=== PATIENT | male | born 1990 | race African-American/Black ===

== ENCOUNTER 2020-01-12 01:08 | Emergency (ER) | payer MEDICAID ==
[~2020-01-12] VITALS: Ht 180.3 cm; Wt 95.3 kg
--- NOTE | 2020-01-12 01:20 | NUR ---
ED Nurse Note: WHEELCHAIR ASSIST TO ED C/O SUBSTANCE ABUSE. PT REPORTS TAKING 1 PILL OF ECSTACY X 2100 AND ETOH. PATIENT AO3 WITH SLURRED SPEECH. NAD VSS. CHANGED INTO GOWN; ATTACHED TO MONITOR; SAFETY MEASURES MET.
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
[2020-01-12 01:30] VITALS: BP 153/70
[2020-01-12] MEDS ORDERED: LORazepam Inj 2mg/ml 1ml IV ONE (01:30)
--- NOTE | 2020-01-12 01:30 | NUR ---
ED Nurse Note: IV ACCESS ESTABLISHED. BLOOD AND URINE COLLECTED; SENT DOWN TO LAB.
[2020-01-12 01:45] LABS: APPEARANCE,URINE CLEAR; BILIRUBIN, URINE NEGATIVE (NEGATIVE); COLOR,URINE PALE YELLOW; EOSINOPHILS % (AUTO) 4.1 % (0.0-3.0); GLUCOSE, URINE (UA) NEGATIVE (NEGATIVE); HEMATOCRIT 45.1 % (42.0-52.0); HEMOGLOBIN 15.7 G/DL (14.2-18.0); KETONES,URINE NEGATIVE (NEGATIVE); LEUKOCYTE ESTERASE ,URINE NEGATIVE (NEGATIVE); LYMPHOCYTES % (AUTO) 45.3 % (20.0-45.0); MEAN CORPUSCULAR VOLUME 87 FL (80-99); MONOCYTES % (AUTO) 6.2 % (1.0-10.0); NEUTROPHILS % (AUTO) 42.4 % (45.0-75.0); NITRITE,URINE NEGATIVE (NEGATIVE); PH,URINE 5 (4.5-8.0); PLATELET COUNT 239 K/UL (150-450); PROTEIN,URINE NEGATIVE (NEGATIVE); RED BLOOD COUNT 5.17 M/UL (4.70-6.10); RED CELL DISTRIBUTION WIDTH 11.5 % (11.6-14.8); UROBILINOGEN,URINE NORMAL MG/DL (0.0-1.0); WHITE BLOOD COUNT 11.9 K/UL (4.8-10.8)
[2020-01-12 02:00] LABS: ANION GAP 11 mmol/L (5-15); BLOOD UREA NITROGEN 17 mg/dL (7-18); CALCIUM 9.1 MG/DL (8.5-10.1); CARBON DIOXIDE 26 MMOL/L (21-32); CHLORIDE 102 MMOL/L (98-107); POTASSIUM 2.9 MMOL/L (3.5-5.1); SODIUM 139 MMOL/L (136-145)
[2020-01-12 03:00] VITALS: BP 123/72
--- NOTE | 2020-01-12 03:00 | NUR ---
ED Nurse Note: PATIENT SLEEPING IN BED WITH NO ACUTE DISTRESS. AROUSABLE TO NAME. VSS. RESPIRATIONS EVEN AND UNLABORED.
[2020-01-12 04:30] VITALS: BP 133/72
--- NOTE | 2020-01-12 04:30 | NUR ---
ED Nurse Note: PATIENT AO4. NAD. VSS. PATIENT STATES "I FEEL BETTER. I WANT TO GO HOME NOW" NOTIFIED ERMD. PATIENT ABLE TO AMBULATE WITH STEADY GAIT. PT CALLED GF TO PICK HIM UP.
[2020-01-12 05:10] VITALS: BP 158/75
--- NOTE | 2020-01-12 05:10 | NUR ---
ER DISCHARGE NOTE: Patient is cleared to be discharged per ERMD, pt is aox4, on room air, with stable vital signs. pt was given dc instructions, pt was able to verbalize understanding, pt id band and iv site removed intact without complications. pt is able to ambulate with steady gait. pt took all belongings. pt stable upon discharge.
== END 2020-01-12 05:22 | disposition home or self-care (01) ==
LOC: EMR 01:20
DX: F16.10 Hallucinogen abuse, uncomplicated (principal); F10.10 Alcohol abuse, uncomplicated; F17.200 Nicotine dependence, unspecified, uncomplicated
CPT/HCPCS: 36415; 80048; 80307; 81001; 85025; 96361; 96374; G0480; J2405; J7030; Z7502; 99284